=== PATIENT | male | born 1930 | race Caucasian/White ===

== ENCOUNTER 2017-09-10 16:39 | Inpatient (IN) | payer OTHER ==
--- NOTE | 2017-09-10 17:21 | PDOC ---
Attending Attestation - HPI HPI: 09/10/17 19:07 The patient is a 86 year old male with significant past medical history of HTN presets to the emergency department with dyspnea on exertion since the past month. EKG done earlier shows manifestation of Afib. - Medical Decision Making Consulted with the director of compensation machine sole leveler , Dr. Eng at 7:17PM. 09/10/17 19:18 <Concha Harmon - Last Filed: 09/10/17 19:18> - Resident Resident Name: Rafi Murrell - ED Attending Attestation I have performed the following: I have examined & evaluated the patient, The case was reviewed & discussed with the resident, I agree w/resident's findings & plan, Exceptions are as noted - Physicial Exam PE: 09/10/17 18:11 Patient is awake and alert, well-appearing, in no distress Normocephalic, atraumatic EOMI, PERRLA No JVD CTA Irregularly irregular, mildly tachycardic Soft, nondistended, nontender to palpation Minimal lower extremity edema bilaterally Awake and alert, moving all extremities symmetrically - Medical Decision Making 09/10/17 18:12 Patient is an 86-year-old male with history of hypertension who presents with worsening shortness of breath with minimal exertion for the past month. An outpatient evaluation patient was found to be in atrial fibrillation with RVR. In the ER, patient is afebrile, mildly tachycardic, hemodynamically stable in no distress. We'll obtain CBC/CMP/cardiac profile/TSH. We'll administer Cardizem by mouth for rate control. Patient's chads 2 vascular score is 3 suggestive of anticoagulation pending risk versus benefit analysis. chest x-ray shows b/l pleural effusions. Will consult cardiology. Will admit. 09/10/17 19:[address] Eng of cardiology. He agrees with plan of diuresis and anticoagulation with a liquids. <Alberto Saldana - Last Filed: 09/10/17 19:24>
[2017-09-10] MEDS ORDERED: dilTIAZem HCL 30 MG TABLET (FP) PO ONE (17:29)
--- NOTE | 2017-09-10 17:40 | PDOC ---
History of Present Illness - General History Source: Patient Exam Limitations: No Limitations <Rafi Murrell - Last Filed: 09/10/17 18:46> <Alberto Saldana - Last Filed: 09/10/17 19:46> - General Chief Complaint: Shortness of Breath Stated Complaint: IRREGULAR HEART BEAT Time Seen by Provider: 09/10/17 17:11 - History of Present Illness Initial Comments: 09/10/17 18:48 86m with pmh of htn who presents with worsening SOB on exertion for the past month. PCP Dr. Leonard saw patient this morning who was found to be in new- onset atrial fibrillation with RVR at a rate of 127. Patient is comfortable sleeping flat. In the ER, patient is afebrile, mildly tachycardic, hemodynamically stable in no distress. (Rafi Murrell) Past History - Past Medical History COPD: No HTN: Yes Psychiatric Problems: Yes (anxiety) - Surgical History Abdominal Surgery: Yes (hernia) - Suicide/Smoking/Psychosocial Hx Smoking History: Never smoked Have you smoked in the past 12 months: No Information on smoking cessation initiated: No Hx Alcohol Use: No Drug/Substance Use Hx: No Substance Use Type: None <Rafi Murrell - Last Filed: 09/10/17 18:46> <Alberto Saldana - Last Filed: 09/10/17 19:46> - Past Medical History Allergies/Adverse Reactions: Allergies Allergy/AdvReac Type Severity Reaction Status Date / Time No Known Allergies Allergy Verified 09/10/17 16:55 Home Medications: Ambulatory Orders Metoprolol Succinate 100 mg PO DAILY 09/10/17 Review of Systems - Review of Systems Able to Perform ROS?: Yes Is the patient limited Tunisian proficient: No Constitutional: No: Symptoms Reported HEENTM: No: Symptoms Reported Respiratory: Yes: SOB with Exertion Cardiac (ROS): Yes: Irregular Heart Rate ABD/GI: No: Symptoms Reported : No: Symptoms Reported Musculoskeletal: No: Symptoms Reported Integumentary: No: Symptoms Reported Neurological: No: Symptoms reported All Other Systems: Reviewed and Negative <Rafi Murrell - Last Filed: 09/10/17 18:46> *Physical Exam - Physical Exam General Appearance: Yes: Nourished, Appropriately Dressed, Thin. No: Apparent Distress HEENT: positive: EOMI, ANDRES Respiratory/Chest: positive: Lungs Clear, Normal Breath Sounds, Decreased Breath Sounds (at b/l bases). negative: Chest Tender, Respiratory Distress Cardiovascular: positive: Irregularly Irregular Gastrointestinal/Abdominal: positive: Normal Bowel Sounds, Flat, Soft. negative : Tender Integumentary: positive: Normal Color, Dry, Warm Neurologic: positive: Fully Oriented, Alert, Normal Mood/Affect <Rafi Murrell - Last Filed: 09/10/17 18:46> - Vital Signs Last Vital Signs Temp Pulse Resp BP Pulse Ox 97.8 F 150 H 20 144/77 97 09/10/17 16:50 09/10/17 16:50 09/10/17 16:50 09/10/17 16:50 09/10/17 16:50 ED Treatment Course - LABORATORY CBC & Chemistry Diagram: 09/10/17 16:39 09/10/17 16:39 <Rafi Murrell - Last Filed: 09/10/17 18:46> - LABORATORY CBC & Chemistry Diagram: 09/10/17 16:39 09/10/17 16:39 <Alberto Saldana - Last Filed: 09/10/17 19:46> - ADDITIONAL ORDERS Additional order review: Laboratory Results 09/10/17 09/10/17 09/10/17 16:39 16:39 16:39 PT with INR INR PTT (Actin FS) Sodium 143 Potassium 4.4 Chloride 111 H Carbon Dioxide 23 Anion Gap 9 BUN 26 H Creatinine 1.2 Creat Clearance w eGFR 57.41 Random Glucose 84 Calcium 8.2 L Total Bilirubin 1.7 H AST 38 H ALT 34 Alkaline Phosphatase 78 Troponin I 0.05 B-Natriuretic Peptide 68413.95 H Total Protein 6.0 L Albumin 3.3 L TSH 3.98 H 09/10/17 16:39 PT with INR 14.90 H INR 1.32 H PTT (Actin FS) 33.8 Sodium Potassium Chloride Carbon Dioxide Anion Gap BUN Creatinine Creat Clearance w eGFR Random Glucose Calcium Total Bilirubin AST ALT Alkaline Phosphatase Troponin I B-Natriuretic Peptide Total Protein Albumin TSH 09/10/17 16:39 RBC 4.87 MCV 95.1 MCHC 33.8 RDW 15.3 MPV 10.5 Neutrophils % 61.0 Lymphocytes % 25.2 Monocytes % 11.9 H Eosinophils % 1.1 Basophils % 0.8 - Medications Given in the ED: ED Medications Discontinued Medications Generic Name Dose Route Start Last Admin Trade Name Harleyq PRN Reason Stop Dose Admin Diltiazem HCl 30 mg 09/10/17 17:29 09/10/17 18:02 Cardizem - PO 09/10/17 17:30 30 mg ONCE ONE Administration Medical Decision Making <Rafi Murrell - Last Filed: 09/10/17 18:46> <Alberto Saldana - Last Filed: 09/10/17 19:46> - Medical Decision Making 09/10/17 19:00 86m with new onset afib and sob on exertion for the past month. EKG: Atrial fibrillation with rapid ventricular response, left fascicular blcok Will rate control with cardizem., SC vs valvular disease vs PE CXR pending, basic labs. Will admit to Tele obs. Recommend echo. (Rafi Murrell) *DC/Admit/Observation/Transfer <Rafi Murrell - Last Filed: 09/10/17 18:46> - Discharge Dispostion Admit: Yes <Alberto Saldana - Last Filed: 09/10/17 19:46> Diagnosis at time of Disposition: Atrial fibrillation with RVR, Pleural effusion - Discharge Dispostion Condition at time of disposition: Fair - Referrals Referrals: Diana Mena MD [Primary Care Provider] - - Patient Instructions - Post Discharge Activity
[2017-09-10] MEDS ORDERED: dilTIAZem HCL 30 MG TABLET (FP) ONE (17:42)
[2017-09-10 18:09] LABS: BASO % 0.8 % (0-2.0); EOS % 1.1 % (0-4.5); HEMATOCRIT 46.3 % (35.4-49); HEMOGLOBIN 15.7 GM/dL (11.7-16.9); LYMPH % 25.2 % (8-40); MCH 32.1 pg (25.7-33.7); MCHC 33.8 g/dl (32.0-35.9); MEAN CELL VOLUME 95.1 fl (80-96); MEAN PLT VOLUME 10.5 fl (7.5-11.1); MONO % 11.9 % (3.8-10.2); PLATELET COUNT 131 K/MM3 (134-434); RBC 4.87 M/mm3 (4.00-5.60); RDW 15.3 % (11.9-15.9); WHITE BLOOD COUNT 6.5 K/mm3 (4.0-10.0)
[2017-09-10 18:23] LABS: INR 1.32 (0.82-1.09); PROTHROMBIN TIME (PATIENT) 14.9 SEC (9.7-13.0)
[2017-09-10 18:25] LABS: ACTIVATED PTT 33.8 SECONDS (26.9-34.4)
[2017-09-10 18:43] LABS: ALBUMIN 3.3 g/dl (3.4-5.0); ALK PHOS 78 U/L (45-117); ANION GAP 9 (8-16); BILIRUBIN,TOTAL 1.7 mg/dL (0.2-1.0); BLOOD UREA NITROGEN 26 mg/dL (7-18); CALCIUM 8.2 mg/dL (8.5-10.1); CHLORIDE 111 mmol/L (98-107); CO2 23 mmol/L (21-32); CREATININE 1.2 mg/dL (0.7-1.3); GLUCOSE,RANDOM 84 mg/dL (74-106); POTASSIUM 4.4 mmol/L (3.5-5.1); SGOT/AST 38 U/L (15-37); SGPT/ALT 34 U/L (12-78); SODIUM 143 mmol/L (136-145)
[2017-09-10 18:45] LABS: N-TERMINAL BNP 10630.95 pg/ml (5-450)
[2017-09-10] MEDS ORDERED: FUROSEMIDE 40 MG/4 ML INJECTABLE VIAL IVPUSH ONE ×2 (19:12→19:17)
[2017-09-10] MEDS ORDERED: APIXABAN 5 MG TABLET PO ONE (19:17)
[2017-09-10] MEDS ORDERED: FUROSEMIDE 40 MG/4 ML INJECTABLE VIAL ONE (19:48)
[2017-09-10] MEDS ORDERED: HEPARIN NA (PORCINE) 5,000 UNITS/ML 1ML VIAL IVPUSH PRN ×2 (22:08)
[2017-09-10] MEDS ORDERED: METOPROLOL TARTRATE 50 MG TABLET (FP) ONE (22:12)
[2017-09-10] MEDS: METOPROLOL TARTRATE 50 MG TABLET (FP) PO SCH (22:17)
--- NOTE | 2017-09-10 22:29 | PN ---
Teaching Attending Note Name of Resident: Faraz Rodriguez ATTENDING PHYSICIAN STATEMENT I saw and evaluated the patient. Chart, data, imaging reviewed. I reviewed the resident's note and discussed the case with the resident. I agree with the resident's findings and plan as documented. SUBJECTIVE: 86-year-old male with history of hypertension presented with shortness of breath for last 3 weeks, associated with dry cough. Denied any fevers, sick contacts, or recent travels. He has dyspnea with minimal exertion. No pedal swelling or chest pain, negative orthopnea symptoms. Found to have afib on ekg, new onset. CHADS vasc 2 score is 3. Risk and benefits of anticoagulation explained to patient. He agreed for anticoagulation. CXR showed right sided pleural effusion. OBJECTIVE: Last Vital Signs Temp Pulse Resp BP Pulse Ox 98 F 88 21 137/84 96 09/10/17 21:21 09/10/17 21:21 09/10/17 21:21 09/10/17 21:21 09/10/17 21:21 general- nad, aaox3 heent- moist oral mucosa neck -no jvd noted cv - s1+s2+ irregularly irregular chest- cta -bibasilar left basilar crackle, decreased breath sound over right base abdomen- soft, nt, no masses noted, bs+ ext- no pedal edema Abnormal Lab Results 09/10/17 09/10/17 09/10/17 16:39 16:39 16:39 Plt Count 131 L Monocytes % 11.9 H PT with INR 14.90 H INR 1.32 H Chloride 111 H BUN 26 H Calcium 8.2 L Total Bilirubin 1.7 H AST 38 H B-Natriuretic Peptide 04686.95 H Total Protein 6.0 L Albumin 3.3 L TSH 09/10/17 16:39 Plt Count Monocytes % PT with INR INR Chloride BUN Calcium Total Bilirubin AST B-Natriuretic Peptide Total Protein Albumin TSH 3.98 H CXR -reviewed, noted to have pulmonary vascular congestion with a right sided pleural effusion EKG - reviewed, atrial fibrillation ASSESSMENT AND PLAN: #New onset atrial fibrillation, CHADSVASC score is 3, patient agrees for anticoagulation, risks and benefits of anticoagulation explained. troponin was neg. -admit to telemetry -cardiology evaluation -transthoracic echo -thyroid function studies -metoprolol 50mg po bid for rate control -aim for HR <100 -heparin drip for anticoagulation -trend troponin #R/o CHF- high suspiscion as there is dyspnea with exertion, high BNP, pulm vascular congestion - TTE -start ACEi -i/o, daily weights -2g Na diet #DVT ppx- heparin drip
--- NOTE | 2017-09-10 22:37 | HP ---
CHIEF COMPLAINT: LE PCP: Dr. Leonard HISTORY OF PRESENT ILLNESS: Patient is an 86 yo M with a PMHx of HTN, presented to the ED because of worsening dyspnea on exertion over the past 3 weeks. He says he was able to walk long distances, but now he can't walk 15 yards without stopping to catch his breath. He saw is PCP today who found him to be in A-fib with RVR, and was told to go to the ED. 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 He also noticed he has been coughing (dry) more frequently over the past few weeks. Patient denies orthopnea, edema, dizziness, chest pain, sob, palpitations , nausea, vomiting, headaches, dysuria, diarrhea, weight loss. ER course was notable for: (1) EKG: A-fib with RVR @ 114. QTc 504 (2) Lasix 40mg IV (3) Cardizem 30mg Recent Travel: denies PAST MEDICAL HISTORY: HTN PAST SURGICAL HISTORY: n/a Social History: Smoking: denies Alcohol: very rarely, 2 drink a a year Drugs: denies Family History: Allergies No Known Allergies Allergy (Verified 09/10/17 16:55) HOME MEDICATIONS: Home Medications Medication Instructions Recorded Metoprolol Succinate 100 mg PO DAILY 09/10/17 REVIEW OF SYSTEMS CONSTITUTIONAL: Absent: fever, chills, diaphoresis, generalized weakness, malaise, loss of appetite, weight change HEENT: Absent: rhinorrhea, nasal congestion, throat pain, throat swelling, difficulty swallowing, mouth swelling, ear pain, eye pain, visual changes CARDIOVASCULAR: Absent: chest pain, syncope, palpitations, irregular heart rate, lightheadedness , peripheral edema RESPIRATORY: cough, le Absent: shortness of breath, orthopnea, wheezing, stridor, hemoptysis GASTROINTESTINAL: Absent: abdominal pain, abdominal distension, nausea, vomiting, diarrhea, constipation, melena, hematochezia GENITOURINARY: Absent: dysuria, frequency, urgency, hesitancy, hematuria, flank pain, genital pain SKIN: Absent: rash, itching, pallor HEMATOLOGIC/IMMUNOLOGIC: Absent: easy bleeding, easy bruising, lymphadenopathy, frequent infections NEUROLOGIC: Absent: headache, focal weakness or paresthesias, dizziness, unsteady gait, seizure, mental status changes, bladder or bowel incontinence PHYSICAL EXAMINATION Vital Signs - 24 hr 09/10/17 09/10/17 09/10/17 16:39 16:50 21:21 Temperature 97.8 F 98 F Pulse Rate 114 H 150 H Pulse Rate [ 114 H 88 Left] Respiratory 18 20 21 Rate Blood Pressure 144/77 Blood Pressure 140/74 137/84 [Right Arm] O2 Sat by Pulse 98 97 96 Oximetry (%) GENERAL: Awake, alert, and fully oriented, in no acute distress. EYES: Pupils equal, round and reactive to light, extraocular movements intact, sclera anicteric, conjunctiva clear. No lid lag. EARS, NOSE, THROAT: oropharynx clear without exudates. Moist mucous membranes. NECK: no JVD LUNGS: crackles in the left base HEART: irregularly irregular, no murmurs appreciated ABDOMEN: Soft, nontender, not distended, normoactive bowel sounds, no guarding, no rebound, no masses. UPPER EXTREMITIES: 2+ pulses, warm, well-perfused. No peripheral edema. LOWER EXTREMITIES: 2+ pulses, warm, well-perfused. No peripheral edema. NEUROLOGICAL: Cranial nerves II-XII intact. Normal speech. PSYCHIATRIC: Cooperative. Good eye contact. Appropriate mood and affect. Laboratory Results - last 24 hr 09/10/17 09/10/17 09/10/17 16:39 16:39 16:39 WBC 6.5 RBC 4.87 Hgb 15.7 Hct 46.3 MCV 95.1 MCH 32.1 MCHC 33.8 RDW 15.3 Plt Count 131 L MPV 10.5 Neutrophils % 61.0 Lymphocytes % 25.2 Monocytes % 11.9 H Eosinophils % 1.1 Basophils % 0.8 PT with INR 14.90 H INR 1.32 H PTT (Actin FS) 33.8 Sodium 143 Potassium 4.4 Chloride 111 H Carbon Dioxide 23 Anion Gap 9 BUN 26 H Creatinine 1.2 Creat Clearance w eGFR 57.41 Random Glucose 84 Calcium 8.2 L Total Bilirubin 1.7 H AST 38 H ALT 34 Alkaline Phosphatase 78 Troponin I B-Natriuretic Peptide 25755.95 H Total Protein 6.0 L Albumin 3.3 L TSH 09/10/17 09/10/17 16:39 16:39 WBC RBC Hgb Hct MCV MCH MCHC RDW Plt Count MPV Neutrophils % Lymphocytes % Monocytes % Eosinophils % Basophils % PT with INR INR PTT (Actin FS) Sodium Potassium Chloride Carbon Dioxide Anion Gap BUN Creatinine Creat Clearance w eGFR Random Glucose Calcium Total Bilirubin AST ALT Alkaline Phosphatase Troponin I 0.05 B-Natriuretic Peptide Total Protein Albumin TSH 3.98 H ASSESSMENT/PLAN: 86 yo M with a PMHx of HTn, presents to the ED with 3 week onset of LE, and was found to be in new onset a-fib with CHF. #New Onset A-fib -Tele -ChadVasc 3 -1x Eliquis in ED -Heparin gtt started -Echo in AM -consider eliquis if no severe valvular abnormalities -Trend trops, 1st set neg -Cardiology consulted -EKG -Lopressor 50mg BID for rate control -Patient on home metoporolol but does not know dose. Med rec. #Acute CHF -CXR: congestion, b/l pleural effusions -Lasix 40mg IV 1x in ED -Continue lasix 20mg IV daily -Start Lisinopril 5mg -Daily weights -I/Os -fluid restriction -Echo in AM -Cardiology consulted #BARBARA -urine lytes, urea -avoid nephrotoxins -follow am CMP #Elevated TSH -T4 -Total T3 #FEN -Fluid restriction -WNL -Sodium restricted #PPX -Heparin Gtt Med-tele Visit type - Emergency Visit Emergency Visit: Yes ED Registration Date: 09/10/17 Care time: The patient presented to the Emergency Department on the above date and was hospitalized for further evaluation of their emergent condition. - New Patient This patient is new to me today: Yes Date on this admission: 09/11/17 - Critical Care Critical Care patient: No Hospitalist Screening - Colonoscopy Questionnaire Colonoscopy Questionnaire: Colonoscopy Questionnaire - Patient: 50 - 75 years old and never had a screening colonoscopy: Unknown History of colon or rectal polyps, or CA: Unknown History of IBD, Crohn's disease or UC: Unknown History of abdominal radiation therapy as a child: Unknown - Relative: 1 with colon or rectal CA, or polyps at age 60 or younger: Unknown Colon or rectal CA diagnosed at age 45 or younger: Unknown Multiple relatives with colon or rectal CA: Unknown - Outcome: Screening Result: Negative Screen
[2017-09-10] MEDS ORDERED: HEPARIN INFUSION - 25,000 UNITS/500 ML INFUS.BAG IVPB ONE (22:40)
[2017-09-10] MEDS: HEPARIN INFUSION - 25,000 UNITS/500 ML INFUS.BAG IVPB SCH ×2 (22:41→23:13)
[2017-09-10] MEDS ORDERED: LISINOPRIL 5 MG TABLET (FP) PO ONE (23:37)
[2017-09-11 00:50] VITALS: BMI 23.8
[2017-09-11 07:50] LABS: HEMOGLOBIN 15.3 GM/dL (11.7-16.9); MCH 31.9 pg (25.7-33.7); MCHC 33.2 g/dl (32.0-35.9); MEAN PLT VOLUME 10.6 fl (7.5-11.1); PLATELET COUNT 122 K/MM3 (134-434); RBC 4.79 M/mm3 (4.00-5.60); RDW 15.7 % (11.9-15.9); WHITE BLOOD COUNT 5.5 K/mm3 (4.0-10.0)
[2017-09-11 07:52] LABS: INR 1.74 (0.82-1.09); PROTHROMBIN TIME (PATIENT) 19.7 SEC (9.7-13.0)
[2017-09-11 08:16] LABS: ALBUMIN 3.1 g/dl (3.4-5.0); ANION GAP 12 (8-16); BLOOD UREA NITROGEN 26 mg/dL (7-18); CALCIUM 8.5 mg/dL (8.5-10.1); CHLORIDE 107 mmol/L (98-107); CO2 26 mmol/L (21-32); GLUCOSE,RANDOM 87 mg/dL (74-106); POTASSIUM 4.5 mmol/L (3.5-5.1); SODIUM 145 mmol/L (136-145)
[2017-09-11 08:22] LABS: ALK PHOS 72 U/L (45-117); BILIRUBIN,TOTAL 1.7 mg/dL (0.2-1.0); CREATININE 1.2 mg/dL (0.7-1.3); SGOT/AST 36 U/L (15-37); SGPT/ALT 33 U/L (12-78); TOT PROT 5.8 g/dl (6.4-8.2)
--- NOTE | 2017-09-11 09:05 | PN ---
Physical Exam: SUBJECTIVE: Patient seen and examined - No overnight events; pt denies all symptoms, no complaints; SOB resolved; denies CABRERA, vision changes, f/c/n/v/d, cp, ab pain, back pain, LE edema, FNDs, orthopnea, LE; tolerating po feeds well OBJECTIVE: Vital Signs Intake & Output 09/08/17 09/09/17 09/10/17 09/11/17 23:59 23:59 23:59 23:59 Intake Total 120 Output Total 500 Balance -380 Weight 77.111 kg 77.7 kg Period Temp Pulse Resp BP Sys/Blum Pulse Ox Last 24 Hr 97 F-98.1 F 77-150 18-22 126-144/61-86 96-98 GENERAL: Elderly man, NAD, A&Ox3 HEAD: Normal with no signs of trauma. EYES: PERRL, extraocular movements intact, sclera anicteric, conjunctiva clear. No ptosis. ENT: Ears normal, nares patent, oropharynx clear without exudates, moist mucous membranes. NECK: Trachea midline, full range of motion, supple. LUNGS: Trace cracles at bases, no wheezes, no accessory muscle use. HEART: Irr Irr, S1, S2 without murmur, rub or gallop. ABDOMEN: Soft, nontender, nondistended, normoactive bowel sounds, no guarding, no rebound, no hepatosplenomegaly, no masses. EXTREMITIES: warm, well-perfused, no edema. 1+ DP/PT pulses BL. NEUROLOGICAL: Cranial nerves II through XII grossly intact. Normal speech, gait not observed. PSYCH: Normal mood, normal affect. SKIN: Warm, dry, normal turgor, no rashes or lesions noted Laboratory Results - last 24 hr CBC, BMP 09/11/17 06:45 09/11/17 06:45 09/10/17 09/10/17 09/10/17 16:39 16:39 16:39 WBC 6.5 RBC 4.87 Hgb 15.7 Hct 46.3 MCV 95.1 MCH 32.1 MCHC 33.8 RDW 15.3 Plt Count 131 L MPV 10.5 Neutrophils % 61.0 Lymphocytes % 25.2 Monocytes % 11.9 H Eosinophils % 1.1 Basophils % 0.8 PT with INR 14.90 H INR 1.32 H PTT (Actin FS) 33.8 Sodium 143 Potassium 4.4 Chloride 111 H Carbon Dioxide 23 Anion Gap 9 BUN 26 H Creatinine 1.2 Creat Clearance w eGFR 57.41 Random Glucose 84 Calcium 8.2 L Magnesium Total Bilirubin 1.7 H AST 38 H ALT 34 Alkaline Phosphatase 78 Troponin I B-Natriuretic Peptide 84794.95 H Total Protein 6.0 L Albumin 3.3 L TSH Free T4 Ur Random Sodium Ur Random Potassium Ur Random Chloride Ur Random Urea Nitrogn 09/10/17 09/10/17 09/10/17 16:39 16:39 22:50 WBC RBC Hgb Hct MCV MCH MCHC RDW Plt Count MPV Neutrophils % Lymphocytes % Monocytes % Eosinophils % Basophils % PT with INR INR PTT (Actin FS) Sodium Potassium Chloride Carbon Dioxide Anion Gap BUN Creatinine Creat Clearance w eGFR Random Glucose Calcium Magnesium Total Bilirubin AST ALT Alkaline Phosphatase Troponin I 0.05 B-Natriuretic Peptide Total Protein Albumin TSH 3.98 H Free T4 Ur Random Sodium Ur Random Potassium Ur Random Chloride Ur Random Urea Nitrogn 194 09/10/17 09/11/17 09/11/17 22:50 04:00 04:00 WBC RBC Hgb Hct MCV MCH MCHC RDW Plt Count MPV Neutrophils % Lymphocytes % Monocytes % Eosinophils % Basophils % PT with INR INR PTT (Actin FS) 98.3 H D Sodium Potassium Chloride Carbon Dioxide Anion Gap BUN Creatinine Creat Clearance w eGFR Random Glucose Calcium Magnesium Total Bilirubin AST ALT Alkaline Phosphatase Troponin I 0.05 B-Natriuretic Peptide Total Protein Albumin TSH Free T4 Ur Random Sodium 116 Ur Random Potassium 22.8 Ur Random Chloride 138 Ur Random Urea Nitrogn 09/11/17 09/11/17 09/11/17 06:45 06:45 06:45 WBC 5.5 RBC 4.79 Hgb 15.3 Hct 46.0 MCV 96.0 MCH 31.9 MCHC 33.2 RDW 15.7 Plt Count 122 L MPV 10.6 Neutrophils % Lymphocytes % Monocytes % Eosinophils % Basophils % PT with INR 19.70 H INR 1.74 H D PTT (Actin FS) Sodium 145 Potassium 4.5 Chloride 107 Carbon Dioxide 26 Anion Gap 12 BUN 26 H Creatinine 1.2 Creat Clearance w eGFR 57.41 Random Glucose 87 Calcium 8.5 Magnesium 2.0 Total Bilirubin 1.7 H AST 36 ALT 33 Alkaline Phosphatase 72 Troponin I B-Natriuretic Peptide Total Protein 5.8 L Albumin 3.1 L TSH Free T4 Ur Random Sodium Ur Random Potassium Ur Random Chloride Ur Random Urea Nitrogn 09/11/17 06:45 WBC RBC Hgb Hct MCV MCH MCHC RDW Plt Count MPV Neutrophils % Lymphocytes % Monocytes % Eosinophils % Basophils % PT with INR INR PTT (Actin FS) Sodium Potassium Chloride Carbon Dioxide Anion Gap BUN Creatinine Creat Clearance w eGFR Random Glucose Calcium Magnesium Total Bilirubin AST ALT Alkaline Phosphatase Troponin I B-Natriuretic Peptide Total Protein Albumin TSH Free T4 1.39 H Ur Random Sodium Ur Random Potassium Ur Random Chloride Ur Random Urea Nitrogn Active Medications Generic Name Dose Route Start Last Admin Trade Name Freq PRN Reason Stop Dose Admin Furosemide 20 mg 09/11/17 10:00 Lasix Injection - IVPUSH DAILY ANMOL Heparin Sodium (Porcine) 1,000 unit 09/10/17 22:08 Heparin - IVPUSH PRN PRN Heparin Heparin Sodium (Porcine) 5,000 unit 09/10/17 22:08 Heparin - IVPUSH PRN PRN Heparin Heparin Sodium/Dextrose 25,000 units in 500 mls @ 20 mls/hr 09/10/17 22:45 05:38 Heparin Infusion - IVPB 900 unit/hr TITR ANMOL 18 mls/hr Protocol Titration 1,000 UNIT/HR Lisinopril 5 mg 09/11/17 10:00 Prinivil PO DAILY ANMOL Metoprolol Tartrate 50 mg 09/10/17 22:00 09/10/17 22:17 Lopressor - PO 50 mg BID ANMOL Administration No micro CXR 5/2 - BL basilar opacities and congestive changes. cardiomegaly ECHO 5/3 - Severe global hypokinesis of left ventricle, RV mildly dilated/ reduced, LA severely dilated, RA moderately dilated, mild MR, moderate TR, mild AR, moderate DE EKG 5/3 - Rate of 88, afib with pvcs, qtc 513, LAFB, No ST-TW changes ASSESSMENT/PLAN: 86 yo M with a PMHx of HTn, presents to the ED with 3 week onset of LE, and was found to be in new onset a-fib with CHF. #New Onset A-fib - rate in 150s on admission; will determine appropriate AC, rate control per cards recs -cardiac monitoring -ChadVasc 3 - c/w eliquis BID -d/c heparin gtt -Echo results noted above -trops neg x2 -Cardiology consulted, recs appreciated -EKG -Lopressor 50mg BID for rate control - serial coags #Acute CHF - BNP 10.6K, CXR with BL pleural effusions/congestion; no further dyspnea today -C/w lasix 20mg IV daily - Lisinopril 5mg -Daily weights -strict I/Os -fluid restriction; PO hydration -echo results noted as above -Cardiology following - O2 prn #CAD - Lexiscan during admission. Consider tomorrow - would benefit from ASA 81mg daily #FEN -PO hydration -daily lytes -Sodium restricted diet #PPX -d/c hep gtt; started on Eliquis BID Plan discussed with attending, Dr. Lupis Villagomez, PGY1 Visit type - Emergency Visit Emergency Visit: Yes ED Registration Date: 09/10/17 Care time: The patient presented to the Emergency Department on the above date and was hospitalized for further evaluation of their emergent condition. - New Patient This patient is new to me today: Yes Date on this admission: 09/11/17 - Critical Care Critical Care patient: No - Discharge Referral Referred to [facility] Med P.C.: No
[2017-09-11] MEDS ORDERED: FUROSEMIDE 40 MG/4 ML INJECTABLE VIAL IVPUSH SCH (10:00)
[2017-09-11] MEDS: FUROSEMIDE 40 MG/4 ML INJECTABLE VIAL IVPUSH SCH (10:18)
[2017-09-11] MEDS: METOPROLOL TARTRATE 50 MG TABLET (FP) PO SCH ×2 (10:21→22:33)
[2017-09-11] MEDS: LISINOPRIL 5 MG TABLET (FP) PO SCH (10:21)
--- NOTE | 2017-09-11 11:27 | EKG ---
Test Reason : Blood Pressure : / mmHG Vent. Rate : 088 BPM Atrial Rate : 119 BPM P-R Int : 000 ms QRS Dur : 124 ms QT Int : 424 ms P-R-T Axes : 000 -58 106 degrees QTc Int : 513 ms ATRIAL FIBRILLATION WITH PREMATURE VENTRICULAR OR ABERRANTLY CONDUCTED COMPLEXES LEFT ANTERIOR FASCICULAR BLOCK ABNORMAL QRS-T ANGLE, CONSIDER PRIMARY T WAVE ABNORMALITY ABNORMAL ECG WHEN COMPARED WITH ECG OF 10-SEP-2017 22:15, MINIMAL CRITERIA FOR ANTERIOR INFARCT ARE NO LONGER PRESENT Confirmed by RENAE SANABRIA MD ([id number]) on 09/11/2017 11:26:54 AM Referred By: Confirmed By:RENAE SANABRIA MD
--- NOTE | 2017-09-11 11:28 | EKG ---
Test Reason : Blood Pressure : / mmHG Vent. Rate : 076 BPM Atrial Rate : 056 BPM P-R Int : 000 ms QRS Dur : 130 ms QT Int : 422 ms P-R-T Axes : 000 -59 080 degrees QTc Int : 474 ms ATRIAL FIBRILLATION LEFT AXIS DEVIATION NON-SPECIFIC INTRA-VENTRICULAR CONDUCTION BLOCK CANNOT RULE OUT ANTERIOR INFARCT (CITED ON OR BEFORE 10-SEP-2017) ABNORMAL ECG WHEN COMPARED WITH ECG OF 10-SEP-2017 16:49, VENT. RATE HAS DECREASED BY 38 BPM Confirmed by RENAE SANABRIA MD ([id number]) on 09/11/2017 11:27:47 AM Referred By: Confirmed By:RENAE SANABRIA MD
--- NOTE | 2017-09-11 11:29 | EKG ---
Test Reason : Blood Pressure : / mmHG Vent. Rate : 114 BPM Atrial Rate : 053 BPM P-R Int : 000 ms QRS Dur : 118 ms QT Int : 366 ms P-R-T Axes : 000 -61 078 degrees QTc Int : 504 ms ATRIAL FIBRILLATION WITH RAPID VENTRICULAR RESPONSE LEFT ANTERIOR FASCICULAR BLOCK ANTERIOR INFARCT , AGE UNDETERMINED ABNORMAL ECG WHEN COMPARED WITH ECG OF 24-OCT-2004 17:43, ATRIAL FIBRILLATION HAS REPLACED SINUS RHYTHM VENT. RATE HAS INCREASED BY 49 BPM QRS DURATION HAS INCREASED ANTERIOR INFARCT IS NOW PRESENT Confirmed by RENAE SANABRIA MD ([id number]) on 09/11/2017 11:29:09 AM Referred By: Confirmed By:RENAE SANABRIA MD
--- NOTE | 2017-09-11 13:51 | CON.CARD ---
Consult Consult Specialty:: Cardiology - History of Present Illness History of Present Illness: 86 yo M with HTN noted 3 weeks of dyspnea with exertion. No chest pain, edema, palpitations, orthopnea. Went to PMD yesterday and noted to be in new onset Afib with rapid ventricular response. CXR showed pulmonary congestion. An echocardiogram showed severe diffuse LV systolic dysfunction with EF 25-30% and severe TR. Currently feeling well. Denies symptoms. - History Source History Provided By: Patient - Past Medical History Cardio/Vascular: Yes: HTN - Alcohol/Substance Use Hx Alcohol Use: No - Smoking History Smoking history: Never smoked Have you smoked in the past 12 months: No Home Medications - Allergies Allergies/Adverse Reactions: Allergies Allergy/AdvReac Type Severity Reaction Status Date / Time No Known Allergies Allergy Verified 09/10/17 16:55 - Home Medications Home Medications: Ambulatory Orders Metoprolol Succinate 100 mg PO DAILY 09/10/17 Review of Systems - Review of Systems Constitutional: denies: Chills, Diaphoresis, Fever, Lethargy Eyes: reports: No Symptoms HENT: reports: No Symptoms Neck: reports: No Symptoms Cardiovascular: reports: Shortness of Breath. denies: Chest Pain, Edema, Palpitations Respiratory: reports: Exercise Intolerance, SOB, SOB on Exertion. denies: Cough , Hemoptysis, Orthopnea, PND Musculoskeletal: reports: No Symptoms Integumentary: reports: No Symptoms Neurological: reports: No Symptoms Vital Signs: Vital Signs Temperature 97 F L 09/11/17 08:23 Pulse Rate 88 09/11/17 08:23 Respiratory Rate 22 09/11/17 08:23 Blood Pressure 129/86 09/11/17 08:23 O2 Sat by Pulse Oximetry (%) 96 09/11/17 08:21 Constitutional: Yes: Well Nourished, No Distress Eyes: Yes: WNL, Conjunctiva Clear, EOM Intact HENT: Yes: Atraumatic, Normocephalic Neck: Yes: Supple, Trachea Midline Respiratory: Yes: Regular, CTA Bilaterally Gastrointestinal: Yes: Normal Bowel Sounds, Soft Cardiovascular: Yes: Pulse Irregular JVD: No Carotid Bruit: No PMI: Non-Displaced Heart Sounds: Yes: S1, S2 Murmur: Yes: Systolic Murmur, Grade 2 (RLSB) Edema: No - Other Data Labs, Other Data: CBC, BMP 09/11/17 06:45 09/11/17 06:45 INR, PTT INR 1.74 (0.82-1.09) H D 09/11/17 06:45 Troponin, BNP 09/10/17 09/10/17 09/11/17 16:39 16:39 04:00 Troponin I 0.05 0.05 B-Natriuretic Peptide 54196.95 H Troponin, BNP 09/10/17 09/10/17 09/11/17 16:39 16:39 04:00 Troponin I 0.05 0.05 B-Natriuretic Peptide 18229.95 H Laboratory Tests 09/10/17 09/10/17 09/11/17 16:39 16:39 04:00 Troponin I 0.05 0.05 Albumin TSH 3.98 H Free T4 09/11/17 09/11/17 06:45 06:45 Troponin I Albumin 3.1 L TSH Free T4 1.39 H Echo: Report Reviewed Ejection Fraction %: LVEF < 40 % Imaging - Results Chest X-ray: Report Reviewed EKG: Image Reviewed (Afib LAD poor R wave progression and ventriular couplets.) Assessment/Plan 86 yo M with recent LE and rapid afib. Newly diagnosed cardiomyopathy with severe global LV systolic dysfunction 1. Cardiomyopathy is likely tachycardia induced, however CAD is of concern given his age. We discussed cardiac catheterization but the patient did not want an invasive procedure at this time. * Lexiscan nuclear stress test * Continue Metoprolol/Lisinopril and low dose lasix * Would consider long-term anticoagulation with elevated CHADS-Vasc score. Can place on Eliquis 5mg BID OR Xarelto 20mg qd and stop IV heparin.
--- NOTE | 2017-09-11 13:59 | MSN ---
Progress Note (short form) - Note Progress Note: SUBJECTIVE: Patient with history of hypertension, presented to the ED from his PCP office where a EKG revealed atrial fibrillation with rapid ventricular rate. For the past 3 weeks he has had dyspnea on exertion associated with a non- productive cough. He denies chest pain, lower extremity edema, lightheadedness or syncope. In the ED, he was found to be in atrial fibrillation at a ventricular rate of 150 bpm. He was hemodynamically stable. He received cardizem 30 mg and lasix IV 40 mg with subsequent decrease in heart rate (90bpm ) and subjective improvement in shortness of breath. CXR demonstrated b/l basilar pleural infiltrates/effusions. He was started on a heparin ggt for anti -coagulation. Patient seen and examined at bedside this morning. monitoring and evaluation advisor noted irregular rhythm, tachycardia to 115 bpm with exertion and paired PVCs. No acute overnight events. Vital signs stable. Patient has no complaints this morning. Currently on 2 L of O2 via nasal canula. He denies shortness of breath at rest or with exertion this morning. He denies cough, chest pain, palpitations, lightheadedness, abdominal pain, or lower extremity swelling. He is eating and ambulating well. OBJECTIVE: Vital Signs Period Temp Pulse Resp BP Sys/Blum Pulse Ox Last 24 Hr 97 F-98.1 F 77-150 18-22 126-144/61-86 96-98 GENERAL: Older man appearing younger than stated age sitting up in bed eating breakfast in no distress. Awake, alert, and orientated. HEAD: Normal without evidence of trauma EYES: Conjunctiva clear, sclera anicteric, extra-ocular muscles intact MOUTH: Poor dentition, no lesions or plaques, moist mucous membranes, uvula midline NECK: No jugular venous distention, no lymphadenopathy, no thyromegaly, trachea midline CARDIOVASCULAR: Irregular at rate of 90 bpm, +S1/S2, no murmurs, rubs, or gallops, non-displaced PMI LUNGS: Decreased breath sounds at the bases b/l, no wheezes or crackles ABDOMEN: Normoactive bowel sounds, non-tender, non-distended, soft, no hepatosplenomegaly, no pulsatile masses EXTREMITIES: No LE edema, 2+ DP/radial pulses b/l MSK: Osteoarthric changes of hands b/l NEURO: CN II-XII grossly intact, normal speech PSYCH: Cooperative, pleasant mood and affect CBC, BMP 09/11/17 06:45 09/11/17 06:45 Troponin, BNP 09/10/17 09/10/17 09/11/17 16:39 16:39 04:00 Troponin I 0.05 0.05 B-Natriuretic Peptide 81970.95 H INR, PTT INR 1.74 (0.82-1.09) H D 09/11/17 06:45 Current Medications Generic Name Dose Route Start Last Admin Trade Name Freq PRN Reason Stop Dose Admin Furosemide 20 mg 09/11/17 10:00 09/11/17 10:18 Lasix Injection - IVPUSH 20 mg DAILY ANMOL Administration Heparin Sodium (Porcine) 1,000 unit 09/10/17 22:08 Heparin - IVPUSH PRN PRN Heparin Heparin Sodium (Porcine) 5,000 unit 09/10/17 22:08 Heparin - IVPUSH PRN PRN Heparin Heparin Sodium/Dextrose 25,000 units in 500 mls @ 20 mls/hr 09/10/17 22:45 05:38 Heparin Infusion - IVPB 900 unit/hr TITR ANMOL 18 mls/hr Protocol Titration 1,000 UNIT/HR Lisinopril 5 mg 09/11/17 10:00 09/11/17 10:21 Prinivil PO 5 mg DAILY ANMOL Administration Metoprolol Tartrate 50 mg 09/10/17 22:00 09/11/17 10:21 Lopressor - PO 50 mg BID ANMOL Administration IMAGIN-2 EKG- Atrial fibrillation at ventricular rate of 114 bpm, left anterior fasicular block 5-2 CXR- Bibasilar infiltrates/atelectasis; pulmonary congestion; cardiomegaly Echocardiogram: Severely reduced ejection fraction=25-30% with global hypokinesis of left ventricle. Left atrium severely dilated. Right atrium moderately dilated. Severe tricupsid regurgitation. ASSESSMENT/PLAN: 85 yr old man presented to ED after 3 weeks of dyspnea with exertion and was found to have new-onset atrial fibrillation and systolic CHF. #New on-set atrial fibrillation -Resting ventricular rate is currently controlled with Lopressor 50 mg PO BID ; consider need for increasing lopressor dose as patient is tachycardic with exertion; goal heart rate < 100 bpm -[id number] score is 3; patient would benefit from anticoagulation- discontinue heparin ggt and start Eliquis 5 mg PO BID -Monitor magnesium level #Acute CHF exacerbation-likely 2/2 to sustained tachycardia -Reduced left ventricular ejection fraction (25-30%) and b/l basilar infiltrates on CXR -Troponins (-) x 2 -BNP 10,630 -Start lisinopril 5 mg QD -Continue lasix 20 mg IV QD -Consider need for adding aldactone for mortality benefit -Dr. Eng recommends Lexiscan as concern for CAD contributing to cardiomyopathy #Chronic kidney disease- stage 3 -Creatinine 1.2 -Monitor renal function as starting lisinopril 5 mg QD and lasix 20 mg IV QD -Check serum phosphorous, potassium #Elevated total bilirubin-maybe 2/2 to hepatic congestion and reduced cardiac output -LFTs within normal limits, monitor for improvement as medically optimize cardiac function #DVT ppx -Eliquis 5 mg BID #F/E/N -Low sodium diet #Dispo-Continue telemetry monitoring
--- NOTE | 2017-09-11 17:33 | PN ---
Teaching Attending Note Name of Resident: Tanmay Villagomez ATTENDING PHYSICIAN STATEMENT I saw and evaluated the patient. I reviewed the resident's note and discussed the case with the resident. I agree with the resident's findings and plan as documented. SUBJECTIVE: Patient denies chest pain, palpitations, SOB. OBJECTIVE: Vital Signs Period Temp Pulse Resp BP Sys/Blum Pulse Ox Last 24 Hr 97 F-98.1 F 77-150 20-22 126-144/61-86 96-97 HEART: Irregular LUNGS: Clear ABDOMEN: Soft, non-tender, non-distended, normal BS EXTREMITIES: No edema Laboratory Results - last 24 hr 09/10/17 09/10/17 09/10/17 16:39 16:39 16:39 WBC 6.5 RBC 4.87 Hgb 15.7 Hct 46.3 MCV 95.1 MCH 32.1 MCHC 33.8 RDW 15.3 Plt Count 131 L MPV 10.5 Neutrophils % 61.0 Lymphocytes % 25.2 Monocytes % 11.9 H Eosinophils % 1.1 Basophils % 0.8 PT with INR 14.90 H INR 1.32 H PTT (Actin FS) 33.8 Sodium 143 Potassium 4.4 Chloride 111 H Carbon Dioxide 23 Anion Gap 9 BUN 26 H Creatinine 1.2 Creat Clearance w eGFR 57.41 Random Glucose 84 Calcium 8.2 L Magnesium Total Bilirubin 1.7 H AST 38 H ALT 34 Alkaline Phosphatase 78 Troponin I B-Natriuretic Peptide 49427.95 H Total Protein 6.0 L Albumin 3.3 L TSH Free T4 Ur Random Sodium Ur Random Potassium Ur Random Chloride Ur Random Urea Nitrogn 09/10/17 09/10/17 09/10/17 16:39 16:39 22:50 WBC RBC Hgb Hct MCV MCH MCHC RDW Plt Count MPV Neutrophils % Lymphocytes % Monocytes % Eosinophils % Basophils % PT with INR INR PTT (Actin FS) Sodium Potassium Chloride Carbon Dioxide Anion Gap BUN Creatinine Creat Clearance w eGFR Random Glucose Calcium Magnesium Total Bilirubin AST ALT Alkaline Phosphatase Troponin I 0.05 B-Natriuretic Peptide Total Protein Albumin TSH 3.98 H Free T4 Ur Random Sodium Ur Random Potassium Ur Random Chloride Ur Random Urea Nitrogn 194 09/10/17 09/11/17 09/11/17 22:50 04:00 04:00 WBC RBC Hgb Hct MCV MCH MCHC RDW Plt Count MPV Neutrophils % Lymphocytes % Monocytes % Eosinophils % Basophils % PT with INR INR PTT (Actin FS) 98.3 H D Sodium Potassium Chloride Carbon Dioxide Anion Gap BUN Creatinine Creat Clearance w eGFR Random Glucose Calcium Magnesium Total Bilirubin AST ALT Alkaline Phosphatase Troponin I 0.05 B-Natriuretic Peptide Total Protein Albumin TSH Free T4 Ur Random Sodium 116 Ur Random Potassium 22.8 Ur Random Chloride 138 Ur Random Urea Nitrogn 09/11/17 09/11/17 09/11/17 06:45 06:45 06:45 WBC 5.5 RBC 4.79 Hgb 15.3 Hct 46.0 MCV 96.0 MCH 31.9 MCHC 33.2 RDW 15.7 Plt Count 122 L MPV 10.6 Neutrophils % Lymphocytes % Monocytes % Eosinophils % Basophils % PT with INR 19.70 H INR 1.74 H D PTT (Actin FS) Sodium 145 Potassium 4.5 Chloride 107 Carbon Dioxide 26 Anion Gap 12 BUN 26 H Creatinine 1.2 Creat Clearance w eGFR 57.41 Random Glucose 87 Calcium 8.5 Magnesium 2.0 Total Bilirubin 1.7 H AST 36 ALT 33 Alkaline Phosphatase 72 Troponin I B-Natriuretic Peptide Total Protein 5.8 L Albumin 3.1 L TSH Free T4 Ur Random Sodium Ur Random Potassium Ur Random Chloride Ur Random Urea Nitrogn 09/11/17 09/11/17 06:45 12:40 WBC RBC Hgb Hct MCV MCH MCHC RDW Plt Count MPV Neutrophils % Lymphocytes % Monocytes % Eosinophils % Basophils % PT with INR INR PTT (Actin FS) 96.6 H Sodium Potassium Chloride Carbon Dioxide Anion Gap BUN Creatinine Creat Clearance w eGFR Random Glucose Calcium Magnesium Total Bilirubin AST ALT Alkaline Phosphatase Troponin I B-Natriuretic Peptide Total Protein Albumin TSH Free T4 1.39 H Ur Random Sodium Ur Random Potassium Ur Random Chloride Ur Random Urea Nitrogn Current Medications Generic Name Dose Route Start Last Admin Trade Name Freq PRN Reason Stop Dose Admin Apixaban 5 mg 09/11/17 22:00 Eliquis - PO BID ANMOL Furosemide 20 mg 09/11/17 10:00 09/11/17 10:18 Lasix Injection - IVPUSH 20 mg DAILY ANMOL Administration Lisinopril 5 mg 09/11/17 10:00 09/11/17 10:21 Prinivil PO 5 mg DAILY ANMOL Administration Metoprolol Tartrate 50 mg 09/10/17 22:00 09/11/17 10:21 Lopressor - PO 50 mg BID ANMOL Administration ASSESSMENT AND PLAN: This is an 86 year old man with a history of HTN who presented to the ED with SOB. 1. Atrial fibrillation, new onset, with RVR - Rate is better - Echo shows severely reduced LVEF, severe global hypokinesis of LV, mildly dilated RV, mildly reduced RV systolic function, severely dilated LA, moderately dilated RA, mild MR, moderate to severe TR, mild AR, moderate LA - Continue Lopressor - Eliquis started 2. Cardiomyopathy, possibly ischemic, possibly tachycardia induced, with acute on chronic systolic heart failure - Continue Lasix IV - Fluid restriction - I&O - Daily weight - Lisinopril started - Plan for stress test 3. Probable stage 3 CKD 4. HTN - Continue Lopressor - Lisinopril started
[2017-09-11] MEDS: APIXABAN 5 MG TABLET PO SCH (22:33)
--- NOTE | 2017-09-12 06:28 | PN ---
Physical Exam: SUBJECTIVE: Patient seen and examined - no major overnight events; VSS, afebrile; going for lexiscan today; Pt with no complaints; Denies f/c/n/v/d, CABRERA, sob, cp, cough, ab pain, back pain, le edema and FNDs OBJECTIVE: Vital Signs Intake & Output 09/09/17 09/10/17 09/11/17 09/12/17 23:59 23:59 23:59 23:59 Intake Total 464 Output Total 1600 Balance -1136 Weight 77.111 kg 77.7 kg Period Temp Pulse Resp BP Sys/Blum Pulse Ox Last 24 Hr 97 F-97.5 F 77-113 20-22 120-140/69-89 96-97 GENERAL: Elderly man, NAD, A&Ox3 HEAD: Normal with no signs of trauma. EYES: PERRL, extraocular movements intact, sclera anicteric, conjunctiva clear. No ptosis. ENT: Ears normal, nares patent, oropharynx clear without exudates, moist mucous membranes. NECK: Trachea midline, full range of motion, supple. LUNGS: CTABL, no wheezes, no accessory muscle use. HEART: Irr Irr, S1, S2 without murmur, rub or gallop. ABDOMEN: Soft, nontender, nondistended, normoactive bowel sounds, no guarding, no rebound, no hepatosplenomegaly, no masses. EXTREMITIES: warm, well-perfused, no edema. 1+ DP/PT pulses BL. NEUROLOGICAL: Cranial nerves II through XII grossly intact. Normal speech, gait not observed. PSYCH: Normal mood, normal affect. SKIN: Warm, dry, normal turgor, no rashes or lesions noted Laboratory Results - last 24 hr CBC, BMP CBC, BMP 09/12/17 06:30 09/12/17 06:30 09/11/17 06:45 09/11/17 06:45 09/11/17 09/11/17 09/11/17 06:45 06:45 06:45 WBC 5.5 RBC 4.79 Hgb 15.3 Hct 46.0 MCV 96.0 MCH 31.9 MCHC 33.2 RDW 15.7 Plt Count 122 L MPV 10.6 PT with INR 19.70 H INR 1.74 H D PTT (Actin FS) Sodium 145 Potassium 4.5 Chloride 107 Carbon Dioxide 26 Anion Gap 12 BUN 26 H Creatinine 1.2 Creat Clearance w eGFR 57.41 Random Glucose 87 Calcium 8.5 Magnesium 2.0 Total Bilirubin 1.7 H AST 36 ALT 33 Alkaline Phosphatase 72 Troponin I Total Protein 5.8 L Albumin 3.1 L Free T4 Total T3 09/11/17 09/11/17 09/11/17 06:45 06:45 12:40 WBC RBC Hgb Hct MCV MCH MCHC RDW Plt Count MPV PT with INR INR PTT (Actin FS) 96.6 H Sodium Potassium Chloride Carbon Dioxide Anion Gap BUN Creatinine Creat Clearance w eGFR Random Glucose Calcium Magnesium Total Bilirubin AST ALT Alkaline Phosphatase Troponin I Total Protein Albumin Free T4 1.39 H Total T3 63.00 L 09/11/17 09/11/17 16:15 19:30 WBC RBC Hgb Hct MCV MCH MCHC RDW Plt Count MPV PT with INR INR PTT (Actin FS) 76.4 H Sodium Potassium Chloride Carbon Dioxide Anion Gap BUN Creatinine Creat Clearance w eGFR Random Glucose Calcium Magnesium Total Bilirubin AST ALT Alkaline Phosphatase Troponin I 0.05 Total Protein Albumin Free T4 Total T3 Active Medications Generic Name Dose Route Start Last Admin Trade Name Freq PRN Reason Stop Dose Admin Apixaban 5 mg 09/11/17 22:00 09/11/17 22:33 Eliquis - PO 5 mg BID ANMOL Administration Furosemide 20 mg 09/11/17 10:00 09/11/17 10:18 Lasix Injection - IVPUSH 20 mg DAILY ANMOL Administration Lisinopril 5 mg 09/11/17 10:00 09/11/17 10:21 Prinivil PO 5 mg DAILY ANMOL Administration Metoprolol Tartrate 50 mg 09/10/17 22:00 09/11/17 22:33 Lopressor - PO 50 mg BID ANMOL Administration No micro CXR 09/10 - BL basilar opacities and congestive changes. cardiomegaly ECHO 09/11 - Severe global hypokinesis of left ventricle, RV mildly dilated/ reduced, LA severely dilated, RA moderately dilated, mild MR, moderate TR, mild AR, moderate [place] EKG 09/11 - Rate of 88, afib with pvcs, qtc 513, LAFB, No ST-TW changes ASSESSMENT/PLAN: 86 yo M with a PMHx of HTn, presents to the ED with 3 week onset of LE, and was found to be in new onset a-fib with CHF. #New Onset A-fib - rate in 150s on admission; better controlled currently, increases to 120s on exertion -cardiac monitoring -ChadVasc 3 -c/w eliquis BID -Echo results noted above -trops neg x2 -Cardiology consulted, recs appreciated -Lopressor 50mg BID for rate control - serial coags #Acute CHF - BNP 10.6K, CXR with BL pleural effusions/congestion; no respiratory symptoms currently -lasix 20mg IV daily - Lisinopril 5mg -Daily weights -strict I/Os -fluid restriction; PO hydration -echo results noted as above -Cardiology following - O2 prn #CAD - Lexiscan today. F/u results and cardiac recs. Will likely require C. - would benefit from ASA 81mg daily #FEN -PO hydration -daily lytes -Sodium restricted diet #PPX Eliquis BID Plan discussed with attending, Dr. Chanda Villagomez, PGY1 Visit type - Emergency Visit Emergency Visit: Yes ED Registration Date: 09/10/17 Care time: The patient presented to the Emergency Department on the above date and was hospitalized for further evaluation of their emergent condition. - New Patient This patient is new to me today: No - Critical Care Critical Care patient: No - Discharge Referral Referred to [facility] No
[2017-09-12 07:02] LABS: INR 1.57 (0.82-1.09); PROTHROMBIN TIME (PATIENT) 17.7 SEC (9.7-13.0)
[2017-09-12 07:28] LABS: ALBUMIN 2.6 g/dl (3.4-5.0); ANION GAP 10 (8-16); BASO % 0.6 % (0-2.0); BLOOD UREA NITROGEN 21 mg/dL (7-18); CHLORIDE 106 mmol/L (98-107); CO2 27 mmol/L (21-32); CREATININE 1.1 mg/dL (0.7-1.3); EOS % 1.9 % (0-4.5); GLUCOSE,RANDOM 76 mg/dL (74-106); HEMATOCRIT 42.4 % (35.4-49); HEMOGLOBIN 14.4 GM/dL (11.7-16.9); LYMPH % 28.2 % (8-40); MAGNESIUM 1.9 mg/dL (1.8-2.4); MCH 32.1 pg (25.7-33.7); MCHC 33.8 g/dl (32.0-35.9); MEAN PLT VOLUME 9.9 fl (7.5-11.1); MONO % 11.4 % (3.8-10.2); NEUT % 57.9 % (42.8-82.8); PHOSPHOROUS 2.6 mg/dL (2.5-4.9); PLATELET COUNT 117 K/MM3 (134-434); POTASSIUM 4.2 mmol/L (3.5-5.1); RBC 4.47 M/mm3 (4.00-5.60); RDW 14.9 % (11.9-15.9); SGOT/AST 29 U/L (15-37); SGPT/ALT 28 U/L (12-78); SODIUM 143 mmol/L (136-145)
[2017-09-12 07:30] LABS: ALK PHOS 66 U/L (45-117); BILIRUBIN,TOTAL 1.8 mg/dL (0.2-1.0); TOT PROT 5.1 g/dl (6.4-8.2)
--- NOTE | 2017-09-12 08:24 | MSN ---
Progress Note (short form) - Note Progress Note: SUBJECTIVE: Patient seen and examined at bedside. No acute overnight events. NPO for nuclear stress test this morning. Lopressor held this am. Patient is still vacillating about cardiac cath. system sales consultant recorded tachycardia to 120's bpm (correlated with exertion) and PVCs. No other events recorded. Vital signs stable. Patient has no complaints. He walked with PT yesterday while wearing 2 L O2 via NC without SOB. This morning he is off O2. He denies shortness of breath. He continues to deny lightheadedness, chest pain, palpitations, abdominal pain, or peripheral edema. He is voiding well. He is anxious to go home to start his garden. OBJECTIVE: Vital Signs Period Temp Pulse Resp BP Sys/Blum Pulse Ox Last 24 Hr 97 F-97.5 F 77-113 20-22 120-140/69-96 96-97 GENERAL: Older man with freshly combed hair appearing younger than stated age sitting up in bed in no distress. Awake, alert, and orientated. HEAD: Normal without evidence of trauma EYES: Conjunctiva clear, sclera anicteric, extra-ocular muscles intact MOUTH: Poor dentition/dentures, no lesions or plaques, moist mucous membranes, uvula midline NECK: No jugular venous distention, no lymphadenopathy, no thyromegaly, trachea midline CARDIOVASCULAR: Irregular at rate of 90 bpm, +S1/S2, no murmurs, rubs, or gallops, non-displaced PMI LUNGS: Decreased breath sounds at the bases b/l, breath sounds equal, no wheezes or crackles ABDOMEN: Normoactive bowel sounds, non-tender, non-distended, soft, no hepatosplenomegaly, no pulsatile masses EXTREMITIES: No LE edema, 2+ DP/radial pulses b/l MSK: Osteoarthric changes of hands b/l, no other gross joint deformities NEURO: CN II-XII grossly intact, normal speech, 5/5 muscle strength throughout PSYCH: Cooperative, pleasant mood and affect CBC, BMP 09/12/17 06:30 09/12/17 06:30 Troponin, BNP 09/11/17 16:15 Troponin I 0.05 INR, PTT INR 1.57 (0.82-1.09) H 09/12/17 06:30 Current Medications Generic Name Dose Route Start Last Admin Trade Name Freq PRN Reason Stop Dose Admin Apixaban 5 mg 09/11/17 22:00 09/11/17 22:33 Eliquis - PO 5 mg BID ANMOL Administration Furosemide 20 mg 09/11/17 10:00 09/11/17 10:18 Lasix Injection - IVPUSH 20 mg DAILY ANMOL Administration Lisinopril 5 mg 09/11/17 10:00 09/11/17 10:21 Prinivil PO 5 mg DAILY ANMOL Administration Metoprolol Tartrate 50 mg 09/10/17 22:00 09/11/17 22:33 Lopressor - PO 50 mg BID ANMOL Administration IMAGIN-2 EKG- Atrial fibrillation at ventricular rate of 114 bpm, left anterior fasicular block 5-2 CXR- Bibasilar infiltrates/atelectasis; pulmonary congestion; cardiomegaly 5-2 Echocardiogram: Severely reduced ejection fraction=25-30% with global hypokinesis of left ventricle. Left atrium severely dilated. Right atrium moderately dilated. Severe tricupsid regurgitation. ASSESSMENT/PLAN: 85 yr old man with hx of HTN and hernia repair (2004) presented to ED after 3 weeks of progressive dyspnea with exertion and was found to have new-onset atrial fibrillation and systolic left ventricular dysfunction. #New on-set atrial fibrillation with rapid ventricular rate -Resting ventricular rate is currently controlled with Lopressor 50 mg PO BID ; consider need for increasing lopressor dose as patient is tachycardic with exertion; latent target heart rate at rest of < 110 bpm -[id number] score is 3; patient would benefit from anticoagulation; Heparin ggt was discontinued, now Eliquis 5 mg PO BID -Monitor magnesium level and replete as necessary #Acute CHF exacerbation with cardiomyopathy likely 2/2 to sustained tachycardia -Reduced left ventricular ejection fraction (25-30%) and b/l basilar infiltrates on CXR -Troponins (-) x 2; BNP 10,630 -Lisinopril 5 mg QD -Continue lasix 20 mg IV QD; Strict I/O, patient is negative 1136 mL and negative 9lbs. -Consider need for adding aldactone for mortality benefit -Discontinue O2 -Dr. Eng recommends Lexiscan as concern for CAD contributing to cardiomyopathy; Patient is NPO with AM lopressor held for stress test in AM; follow-up results #Chronic kidney disease- stage 3 -Creatinine 1.2 at admission now 1.1 -Monitor renal function as starting lisinopril 5 mg QD and lasix 20 mg IV QD -Check serum phosphorous, potassium #Mildly elevated total bilirubin (1.7<1.8) -maybe 2/2 to hepatic congestion and reduced cardiac output -LFTs within normal limits, monitor for improvement as medically optimize cardiac function #DVT ppx -Eliquis 5 mg BID #F/E/N -Restart low sodium diet after stress test this AM #Dispo-Discharge home when rate controlled
[2017-09-12] MEDS ORDERED: REGADENOSON 0.4 MG/5 ML PRE-FILLED SYRINGE IVPUSH ONE ×2 (11:52→12:30)
[2017-09-12] MEDS: FUROSEMIDE 40 MG/4 ML INJECTABLE VIAL IVPUSH SCH (13:45)
[2017-09-12] MEDS: LISINOPRIL 5 MG TABLET (FP) PO SCH (13:45)
[2017-09-12] MEDS: APIXABAN 5 MG TABLET PO SCH ×2 (13:45→22:09)
--- NOTE | 2017-09-12 13:54 | PN ---
Teaching Attending Note Name of Resident: Tanmay Villagomez ATTENDING PHYSICIAN STATEMENT I saw and evaluated the patient. I reviewed the resident's note and discussed the case with the resident. I agree with the resident's findings and plan as documented. SUBJECTIVE: Patient went for stress test. Has no new complains. OBJECTIVE: Vital Signs Temperature 97.3 F L 09/12/17 02:38 Pulse Rate 92 H 09/12/17 06:30 Respiratory Rate 20 09/12/17 06:30 Blood Pressure 127/82 09/12/17 06:30 O2 Sat by Pulse Oximetry (%) 97 09/12/17 08:47 GENERAL: Elderly man, NAD, A&Ox3 HEAD: Normal with no signs of trauma. EYES: PERRL, extraocular movements intact, sclera anicteric, conjunctiva clear. ENT: Ears normal, oropharynx clear without exudates, moist mucous membranes. NECK: Trachea midline, full range of motion, supple. LUNGS: CTABL, no wheezes, no accessory muscle use. HEART: Irr Irr, S1, S2 rate is in 90's , 2/6 KEHINDE , no rub or gallop. ABDOMEN: Soft, nontender, nondistended, normoactive bowel sounds, no guarding, no rebound, no hepatosplenomegaly, no masses. EXTREMITIES: warm, well-perfused, no edema. 1+ DP/PT pulses BL. NEUROLOGICAL: Cranial nerves II through XII grossly intact. Normal speech, gait not observed. PSYCH: Normal mood, normal affect. SKIN: Warm, dry, normal turgor, no rashes or lesions noted CBCD WBC 5.0 K/mm3 (4.0-10.0) 09/12/17 06:30 RBC 4.47 M/mm3 (4.00-5.60) 09/12/17 06:30 Hgb 14.4 GM/dL (11.7-16.9) 09/12/17 06:30 Hct 42.4 % (35.4-49) 09/12/17 06:30 MCV 95.0 fl (80-96) 09/12/17 06:30 MCHC 33.8 g/dl (32.0-35.9) 09/12/17 06:30 RDW 14.9 % (11.9-15.9) 09/12/17 06:30 Plt Count 117 K/MM3 (134-434) L 09/12/17 06:30 MPV 9.9 fl (7.5-11.1) 09/12/17 06:30 CMP Sodium 143 mmol/L (136-145) 09/12/17 06:30 Potassium 4.2 mmol/L (3.5-5.1) 09/12/17 06:30 Chloride 106 mmol/L (98-107) 09/12/17 06:30 Carbon Dioxide 27 mmol/L (21-32) 09/12/17 06:30 Anion Gap 10 (8-16) 09/12/17 06:30 BUN 21 mg/dL (7-18) H 09/12/17 06:30 Creatinine 1.1 mg/dL (0.7-1.3) 09/12/17 06:30 Creat Clearance w eGFR > 60 (>60) 09/12/17 06:30 Random Glucose 76 mg/dL (74-106) 09/12/17 06:30 Calcium 8.0 mg/dL (8.5-10.1) L 09/12/17 06:30 Total Bilirubin 1.8 mg/dL (0.2-1.0) H 09/12/17 06:30 AST 29 U/L (15-37) 09/12/17 06:30 ALT 28 U/L (12-78) 09/12/17 06:30 Alkaline Phosphatase 66 U/L (45-117) 09/12/17 06:30 Total Protein 5.1 g/dl (6.4-8.2) L 09/12/17 06:30 Albumin 2.6 g/dl (3.4-5.0) L 09/12/17 06:30 CARDIAC ENZYMES Troponin I 0.05 ng/ml (0.00-0.05) 09/11/17 16:15 Current Medications Generic Name Dose Route Start Last Admin Trade Name Harleyq PRN Reason Stop Dose Admin Apixaban 5 mg 09/11/17 22:00 09/11/17 22:33 Eliquis - PO 5 mg BID ANMOL Administration Furosemide 20 mg 09/11/17 10:00 09/11/17 10:18 Lasix Injection - IVPUSH 20 mg DAILY ANMOL Administration Lisinopril 5 mg 09/11/17 10:00 09/11/17 10:21 Prinivil PO 5 mg DAILY ANMOL Administration Metoprolol Tartrate 50 mg 09/10/17 22:00 09/11/17 22:33 Lopressor - PO 50 mg BID ANMOL Administration Home Medications Medication Instructions Recorded Metoprolol Succinate 100 mg PO DAILY 09/10/17 ASSESSMENT AND PLAN: This is an 86 year old man with a history of HTN who presented to the ED with SOB. #New Onset Atrial fibrillation with RVR rate is controlled now , 92, continue Lopressor , continue Eliquis. Echo shows severely reduced LVEF, severe global hypokinesis of LV, mildly dilated RV, mildly reduced RV systolic function, severely dilated LA, moderately dilated RA, mild MR, moderate to severe TR, mild AR, moderate WA. 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
--- NOTE | 2017-09-12 14:36 | PN ---
Progress Note, Physician Chief Complaint: Dyspnea with effort. Telem AF with HR 70-90 occasionally elevated to 110 History of Present Illness: 86 yo M with HTN noted 3 weeks of dyspnea with exertion. No chest pain, edema, palpitations, orthopnea. Went to PMD yesterday and noted to be in new onset Afib with rapid ventricular response. CXR showed pulmonary congestion. An echocardiogram showed severe diffuse LV systolic dysfunction with EF 25-30% and severe TR. Currently feeling well. Denies symptoms. Stress test 09/12/17 moderate inferior inferolateral and inferoapical fixed defect with mild greta-infarct ischemia. Hypokinesis in inferior and apical matta EF 37% - Current Medication List Current Medications: Active Medications Apixaban (Eliquis -) 5 mg PO BID [facility] Last Admin: 09/11/17 22:33 Dose: 5 mg Furosemide (Lasix Injection -) 20 mg IVPUSH DAILY [facility] Last Admin: 09/11/17 10:18 Dose: 20 mg Lisinopril (Prinivil) 5 mg PO DAILY [facility] Last Admin: 09/11/17 10:21 Dose: 5 mg Metoprolol Tartrate (Lopressor -) 50 mg PO BID [facility] Last Admin: 09/11/17 22:33 Dose: 50 mg - Objective Vital Signs: Vital Signs Temperature 97.3 F L 09/12/17 02:38 Pulse Rate 90 09/12/17 14:13 Respiratory Rate 20 09/12/17 14:13 Blood Pressure 157/68 09/12/17 14:13 O2 Sat by Pulse Oximetry (%) 97 09/12/17 08:47 Constitutional: Yes: Well Nourished HENT: Yes: Atraumatic, Normocephalic Neck: Yes: Supple, Trachea Midline Cardiovascular: Yes: Pulse Irregular, S1, S2. No: JVD Respiratory: Yes: Regular, CTA Bilaterally Gastrointestinal: Yes: Normal Bowel Sounds Edema: No Labs: CBC, BMP 09/12/17 06:30 09/12/17 06:30 INR, PTT INR 1.57 (0.82-1.09) H 09/12/17 06:30 Problem List - Problems (1) Atrial fibrillation with RVR Code(s): I48.91 - UNSPECIFIED ATRIAL FIBRILLATION Assessment/Plan 86 yo M with recent LE and rapid afib. Newly diagnosed cardiomyopathy with severe global LV systolic dysfunction Stress test showing fixed inferior wall defect. Possibly mixed ischemic and non-ischemic Cardiomyopathy with fixed inferior wall defect suggesting an old [place]. Mild greta-infarct ischemia seen. * Continue medical management. Follow up echocardiogram as out patient after a few months of rate control. * Can consider DCCV in the future if symptomatic * Raise Metoprolol 75mg BID * Continue Lisinopril and low dose lasix * Continue ELiquis * Consider DC home when adequately rate controlled.
--- NOTE | 2017-09-12 17:24 | DS ---
Physical Exam: SUBJECTIVE: Patient seen and examined - no major overnight events; VSS, afebrile; going for [employer] today; Pt with no complaints; Denies f/c/n/v/d, CABRERA, sob, cp, cough, ab pain, back pain, le edema and FNDs OBJECTIVE: Vital Signs Intake & Output 09/09/17 09/10/17 09/11/17 09/12/17 23:59 23:59 23:59 23:59 Intake Total 464 Output Total 1600 250 Balance -1136 -250 Weight 77.111 kg 77.7 kg 73.567 kg Period Temp Pulse Resp BP Sys/Blum Pulse Ox Last 24 Hr 97.2 F-97.3 F 77-94 20-20 120-157/68-96 97-97 PHYSICAL EXAM GENERAL: Elderly man, NAD, A&Ox3 HEAD: Normal with no signs of trauma. EYES: PERRL, extraocular movements intact, sclera anicteric, conjunctiva clear. No ptosis. ENT: Ears normal, nares patent, oropharynx clear without exudates, moist mucous membranes. NECK: Trachea midline, full range of motion, supple. LUNGS: CTABL, no wheezes, no accessory muscle use. HEART: Irr Irr, S1, S2 without murmur, rub or gallop. ABDOMEN: Soft, nontender, nondistended, normoactive bowel sounds, no guarding, no rebound, no hepatosplenomegaly, no masses. EXTREMITIES: warm, well-perfused, no edema. 1+ DP/PT pulses BL. NEUROLOGICAL: Cranial nerves II through XII grossly intact. Normal speech, gait not observed. PSYCH: Normal mood, normal affect. SKIN: Warm, dry, normal turgor, no rashes or lesions noted LABS Laboratory Results - last 24 hr CBC, BMP 09/12/17 06:30 09/12/17 06:30 09/11/17 09/11/17 09/11/17 06:45 16:15 19:30 WBC RBC Hgb Hct MCV MCH MCHC RDW Plt Count MPV Neutrophils % Lymphocytes % Monocytes % Eosinophils % Basophils % PT with INR INR PTT (Actin FS) 76.4 H Sodium Potassium Chloride Carbon Dioxide Anion Gap BUN Creatinine Creat Clearance w eGFR Random Glucose Calcium Phosphorus Magnesium Total Bilirubin AST ALT Alkaline Phosphatase Troponin I 0.05 Total Protein Albumin Total T3 63.00 L 09/12/17 09/12/17 09/12/17 06:30 06:30 06:30 WBC 5.0 RBC 4.47 Hgb 14.4 Hct 42.4 MCV 95.0 MCH 32.1 MCHC 33.8 RDW 14.9 Plt Count 117 L MPV 9.9 Neutrophils % 57.9 Lymphocytes % 28.2 Monocytes % 11.4 H Eosinophils % 1.9 Basophils % 0.6 PT with INR 17.70 H INR 1.57 H PTT (Actin FS) 43.9 H D Sodium Potassium Chloride Carbon Dioxide Anion Gap BUN Creatinine Creat Clearance w eGFR Random Glucose Calcium Phosphorus Magnesium Total Bilirubin AST ALT Alkaline Phosphatase Troponin I Total Protein Albumin Total T3 09/12/17 06:30 WBC RBC Hgb Hct MCV MCH MCHC RDW Plt Count MPV Neutrophils % Lymphocytes % Monocytes % Eosinophils % Basophils % PT with INR INR PTT (Actin FS) Sodium 143 Potassium 4.2 Chloride 106 Carbon Dioxide 27 Anion Gap 10 BUN 21 H Creatinine 1.1 Creat Clearance w eGFR > 60 Random Glucose 76 Calcium 8.0 L Phosphorus 2.6 Magnesium 1.9 Total Bilirubin 1.8 H AST 29 ALT 28 Alkaline Phosphatase 66 Troponin I Total Protein 5.1 L Albumin 2.6 L Total T3 No micro CXR 5/2 - BL basilar opacities and congestive changes. cardiomegaly ECHO 5/3 - Severe global hypokinesis of left ventricle, RV mildly dilated/ reduced, LA severely dilated, RA moderately dilated, mild MR, moderate TR, mild AR, moderate ND EKG 5/3 - Rate of 88, afib with pvcs, qtc 513, LAFB, No ST-TW changes Consults: Cardiology HOSPITAL COURSE: prehospital: Patient is an 86 yo M with a PMHx of HTN, presented to the ED because of worsening dyspnea on exertion over the past 3 weeks. He says he was able to walk long distances, but now he can't walk 15 yards without stopping to catch his breath. He saw is PCP today who found him to be in A-fib with RVR, and was told to go to the ED. He does not follow a spring internship. He also noticed he has been coughing (dry) more frequently over the past few weeks. Patient denies orthopnea, edema, dizziness, chest pain, sob, palpitations, nausea, vomiting, headaches, dysuria, diarrhea, weight loss. ER course was notable for: (1) EKG: A-fib with RVR @ 114. QTc 504 (2) Lasix 40mg IV (3) Cardizem 30mg hospital: After receiving cardizem 30mg in ED, pt rate controlled to HR 80-90s. All other VSS. Labs notable for BNP 10.6K. Trops neg x2. Imaging, EKG as noted above. Cardiology consulted. Pt started on heparin gtt, later switched to Eliquis BID. Switched to lopressor 50mg BID. Pt continued on lasix 20mg IV daily, with resolution of dyspnea next day. Echo as noted above. Pt with no symptoms or complaints on f/u day of admission. Pt received lexiscan notable for fixed inferior ischemic defect consistent with prior infarct, severe hypokinesis of inferior and lateral wall. Date of Admission:09/10/17 Date of Discharge: 09/12/17 Pt is medically stable and cleared for discharge home with outpt f/u with Dr. Eng for further work-up and management of cardiac condition. Minutes to complete discharge: 35 Discharge Summary Reason For Visit: PLEURAL EFFUSION/ATRIAL FIB W/RAPID VENTRICULAR RE Current Active Problems Atrial fibrillation with RVR (Acute) Pleural effusion (Acute) Condition: Fair - Instructions Diet, Activity, Other Instructions: During your stay at [facility], you were evaluated for worsening shortness of breath after recently being diagnosed with atrial fibrillation. You were evaluated by our spring internship, Dr. Eng, and stated on diuretics to help with your breathing and eliquis twice a day for anticoagulation. You received a nuclear stress test to evaluate your heart, which demonstrated a prior ischemic area at the base of your heart which is likely chronic. You are being discharged home with outpatient follow-up with Dr. Eng. Medications: The following medications were added to your home regimen. Please take them as directed below. Lopressor 75mg, take one and a half pills by mouth, twice a day. If you become lighthead or your BP is noted to be low, please reduce your dose to one pill ( 50mg), twice a day. Lasix 20mg, take one pill by mouth once a day Eliquis 5mg, take one pill by mouth twice a day Please continue to take all other home medications as previously directed. Follow-ups: Please follow-up with your primary care physician in one week for further management of your medications. Please call their office to schedule an appointment. Please call within one week to schedule an appointment. Please follow-up with our spring internship, Dr Eng, within 1 week at his office. His contact number and address have been provided in this packet. Please call his office to schedule an appointment. You may require additional testing to evaluate the vessels in your heart. Please discuss the further management and work-up of your cardiac condition with Dr. Eng at your next visit with him. Diet/exercise: Please abide by a low sodium, low fat diet. Please return to the hospital if you experience any of the following symptoms: - Increased difficulty breathing or decreased exercise tolerance - Worsening dizziness/lightheadness - Worsening palpitations or persistently fast or slow heart beat - Increase swelling in your legs, abdominal pain or increased difficulty breathing - Any new or concerning symptoms Referrals: Diana Mena MD [Primary Care Provider] - 1 Week Jose De Jesus Eng MD [Staff Physician] - 1 Week Disposition: HOME - Home Medications Comprehensive Discharge Medication List: Ambulatory Orders Apixaban [Eliquis -] 5 mg PO BID #60 tablet 09/12/17 Furosemide [Lasix] 20 mg PO DAILY #30 tablet 09/12/17 Lisinopril [Prinivil] 5 mg PO DAILY #30 tablet 09/12/17 Metoprolol Tartrate [Lopressor -] 75 mg PO BID #90 tablet 09/12/17 This patient is new to me today: No Emergency Visit: Yes ED Registration Date: 09/10/17 Care time: The patient presented to the Emergency Department on the above date and was hospitalized for further evaluation of their emergent condition. Critical Care patient: No - Discharge Referral Referred to [facility] Med P.C.: No
[2017-09-13 07:43] LABS: CHLORIDE 106 mmol/L (98-107); POTASSIUM 4.6 mmol/L (3.5-5.1); SODIUM 142 mmol/L (136-145)
[2017-09-13 07:51] LABS: ALBUMIN 2.9 g/dl (3.4-5.0); ALK PHOS 82 U/L (45-117); ANION GAP 7 (8-16); BILIRUBIN,TOTAL 1.7 mg/dL (0.2-1.0); BLOOD UREA NITROGEN 16 mg/dL (7-18); CALCIUM 8.2 mg/dL (8.5-10.1); CO2 29 mmol/L (21-32); GLUCOSE,RANDOM 93 mg/dL (74-106); INR 1.73 (0.82-1.09); PHOSPHOROUS 3.2 mg/dL (2.5-4.9); PROTHROMBIN TIME (PATIENT) 19.5 SEC (9.7-13.0); SGOT/AST 29 U/L (15-37); SGPT/ALT 29 U/L (12-78); TOT PROT 5.5 g/dl (6.4-8.2)
[2017-09-13 08:03] LABS: BASO % 0.4 % (0-2.0); EOS % 1.5 % (0-4.5); HEMATOCRIT 43.9 % (35.4-49); LYMPH % 22.7 % (8-40); MCH 32.1 pg (25.7-33.7); MCHC 34.1 g/dl (32.0-35.9); MEAN PLT VOLUME 9.8 fl (7.5-11.1); NEUT % 64.4 % (42.8-82.8); PLATELET COUNT 136 K/MM3 (134-434); RBC 4.67 M/mm3 (4.00-5.60); RDW 15.3 % (11.9-15.9); WHITE BLOOD COUNT 6.2 K/mm3 (4.0-10.0)
--- NOTE | 2017-09-13 08:58 | DS ---
Physical Exam: SUBJECTIVE: Patient seen and examined Patient is feeling well, wants to go home OBJECTIVE: Vital Signs Temperature 98.2 F 09/13/17 09:25 Pulse Rate 92 H 09/13/17 09:25 Respiratory Rate 18 09/13/17 09:25 Blood Pressure 127/67 09/13/17 09:25 O2 Sat by Pulse Oximetry (%) 95 09/13/17 10:00 PHYSICAL EXAM GENERAL: The patient is awake, alert, and fully oriented, in no acute distress. HEAD: Normal with no signs of trauma. EYES: PERRL, extraocular movements intact, sclera anicteric, conjunctiva clear. ENT: Ears normal, oropharynx clear without exudates, moist mucous membranes. NECK: Trachea midline, full range of motion, supple. LUNGS: Breath sounds equal, clear to auscultation bilaterally, no wheezes, no crackles, no accessory muscle use. HEART: irregularly-irregular with rate of 90's , S1, [id number], KEHINDE 2/6 , no rub or gallop. ABDOMEN: Soft, nontender, nondistended, normoactive bowel sounds, no guarding, no rebound, no hepatosplenomegaly, no masses. EXTREMITIES: 2+ pulses, warm, well-perfused, no edema. NEUROLOGICAL: Cranial nerves II through XII grossly intact. Normal speech, gait not observed. PSYCH: Normal mood, normal affect. SKIN: Warm, dry, normal turgor, no rashes or lesions noted. LABS CBCD WBC 6.2 K/mm3 (4.0-10.0) 09/13/17 05:00 RBC 4.67 M/mm3 (4.00-5.60) 09/13/17 05:00 Hgb 15.0 GM/dL (11.7-16.9) 09/13/17 05:00 Hct 43.9 % (35.4-49) 09/13/17 05:00 MCV 94.0 fl (80-96) 09/13/17 05:00 MCHC 34.1 g/dl (32.0-35.9) 09/13/17 05:00 RDW 15.3 % (11.9-15.9) 09/13/17 05:00 Plt Count 136 K/MM3 (134-434) 09/13/17 05:00 MPV 9.8 fl (7.5-11.1) 09/13/17 05:00 CMP Sodium 142 mmol/L (136-145) 09/13/17 05:00 Potassium 4.6 mmol/L (3.5-5.1) 09/13/17 05:00 Chloride 106 mmol/L (98-107) 09/13/17 05:00 Carbon Dioxide 29 mmol/L (21-32) 09/13/17 05:00 Anion Gap 7 (8-16) L 09/13/17 05:00 BUN 16 mg/dL (7-18) D 09/13/17 05:00 Creatinine 1.0 mg/dL (0.7-1.3) 09/13/17 05:00 Creat Clearance w eGFR > 60 (>60) 09/13/17 05:00 Random Glucose 93 mg/dL (74-106) D 09/13/17 05:00 Calcium 8.2 mg/dL (8.5-10.1) L 09/13/17 05:00 Total Bilirubin 1.7 mg/dL (0.2-1.0) H 09/13/17 05:00 AST 29 U/L (15-37) 09/13/17 05:00 ALT 29 U/L (12-78) 09/13/17 05:00 Alkaline Phosphatase 82 U/L (45-117) D 09/13/17 05:00 Total Protein 5.5 g/dl (6.4-8.2) L 09/13/17 05:00 Albumin 2.9 g/dl (3.4-5.0) L 09/13/17 05:00 CARDIAC ENZYMES Troponin I 0.05 ng/ml (0.00-0.05) 09/11/17 16:15 Current Medications Generic Name Dose Route Start Last Admin Trade Name Freq PRN Reason Stop Dose Admin Apixaban 5 mg 09/11/17 22:00 09/12/17 22:09 Eliquis - PO 5 mg BID ANMOL Administration Furosemide 20 mg 09/11/17 10:00 09/12/17 13:45 Lasix Injection - IVPUSH 20 mg DAILY ANMOL Administration Lisinopril 5 mg 09/11/17 10:00 09/12/17 13:45 Prinivil PO 5 mg DAILY ANMOL Administration Metoprolol Succinate 75 mg 09/12/17 22:00 09/12/17 22:09 Toprol Xl - PO 75 mg BID ANMOL Administration Home Medications Medication Instructions Recorded Apixaban [Eliquis -] 5 mg PO BID #60 tablet 09/12/17 Furosemide [Lasix] 20 mg PO DAILY #30 tablet 09/12/17 Lisinopril [Prinivil] 5 mg PO DAILY #30 tablet 09/12/17 Metoprolol Tartrate [Lopressor -] 75 mg PO BID #90 tablet 09/12/17 HOSPITAL COURSE: Date of Admission:09/10/17 Date of Discharge: 09/13/17 This is an 86 year old man with a history of HTN who presented to the ED with SOB and new onset Afib. #New Onset Atrial fibrillation with RVR rate improved today 92, continue Lopressor, on Eliquis continue Echo shows severely reduced LVEF, severe global hypokinesis of LV, mildly dilated RV, mildly reduced RV systolic function, severely dilated LA, moderately dilated RA, mild MR, moderate to severe TR, mild AR, moderate [place]. Patient had a stress test showing fixed inferior wall defect as per vba developer suggesting an old [place], Mild greta-infarct ischemia seen. As per cardio.to continue medical management for now, follow up echocardiogram as out patient within 2 months period. Patient needs to follow up with vba developer office within a week period for further medical care. On Lopressor increased the dose to 75mg XL daily. As per cardio. if patient becomes symtomatic possible needing DCCV in the future #Acute on chronic systolic heart failure with on Lasix , will switch to po lasix 20mg daily as per cardio recommendation , sodium and fluid restriction, On isinopril continue. # Newly diagnosed cardiomyopathy with severe global LV systolic dysfunction., possible Ischemic vs non-Ischemia, with fixed inferior wall defect, old [place]. # Probable stage 3 CKD # HTN contolled on Lopressor and Lisinopril discussed with vba developer discharge time 40 minutes. Minutes to complete discharge: 40 Discharge Summary Reason For Visit: PLEURAL EFFUSION/ATRIAL FIB W/RAPID VENTRICULAR RE Current Active Problems Atrial fibrillation with RVR (Acute) Pleural effusion (Acute) Condition: Fair - Instructions Diet, Activity, Other Instructions: During your stay at [facility], you were evaluated for worsening shortness of breath after recently being diagnosed with atrial fibrillation. You were evaluated by our vba developer, Dr. Eng, and stated on diuretics to help with your breathing and eliquis twice a day for anticoagulation. You received a nuclear stress test to evaluate your heart, which demonstrated a prior ischemic area at the base of your heart which is likely chronic. You are being discharged home with outpatient follow-up with Dr. Eng. Medications: The following medications were added to your home regimen. Please take them as directed below. Lopressor 75mg, take one and a half pills by mouth, twice a day. If you become lighthead or your BP is noted to be low, please reduce your dose to one pill ( 50mg), twice a day. Lasix 20mg, take one pill by mouth once a day Eliquis 5mg, take one pill by mouth twice a day Please continue to take all other home medications as previously directed. Follow-ups: Please follow-up with your primary care physician in one week for further management of your medications. Please call their office to schedule an appointment. Please call within one week to schedule an appointment. Please follow-up with our vba developer, Dr Eng, within 1 week at his office. His contact number and address have been provided in this packet. Please call his office to schedule an appointment. You may require additional testing to evaluate the vessels in your heart. Please discuss the further management and work-up of your cardiac condition with Dr. Eng at your next visit with him. Diet/exercise: Please abide by a low sodium, low fat diet. Please return to the hospital if you experience any of the following symptoms: - Increased difficulty breathing or decreased exercise tolerance - Worsening dizziness/lightheadness - Worsening palpitations or persistently fast or slow heart beat - Increase swelling in your legs, abdominal pain or increased difficulty breathing - Any new or concerning symptoms Referrals: Diana Mena MD [Primary Care Provider] - 1 Week Jose De Jesus Eng MD [Staff Physician] - 1 Week Disposition: HOME - Home Medications Comprehensive Discharge Medication List: Ambulatory Orders Apixaban [Eliquis -] 5 mg PO BID #60 tablet 09/12/17 Furosemide [Lasix] 20 mg PO DAILY #30 tablet 09/12/17 Lisinopril [Prinivil] 5 mg PO DAILY #30 tablet 09/12/17 Metoprolol Tartrate [Lopressor -] 75 mg PO BID #90 tablet 09/12/17 This patient is new to me today: No Emergency Visit: Yes ED Registration Date: 09/10/17 Care time: The patient presented to the Emergency Department on the above date and was hospitalized for further evaluation of their emergent condition. Critical Care patient: No - Discharge Referral Referred to [facility] Med P.C.: No
[2017-09-13] MEDS: FUROSEMIDE 40 MG/4 ML INJECTABLE VIAL IVPUSH SCH (09:18)
[2017-09-13] MEDS: LISINOPRIL 5 MG TABLET (FP) PO SCH (09:19)
[2017-09-13] MEDS: APIXABAN 5 MG TABLET PO SCH (09:20)
[2017-09-13 09:26] VITALS: BP 127/67; PULSE 92; TEMP 98.2
== END 2017-09-13 14:53 | disposition home or self-care (01) | DRG 291 ==
LOC: JER 16:39 → JERBED 19:46 → J4W 09-11 00:09
PROVIDERS: ADMIT Internal Medicine; ATTEND Internal Medicine
DX: I13.0 Hypertensive heart and chronic kidney disease with heart failure and stage 1 through stage 4 chronic kidney disease, or unspecified chronic kidney disease (principal); I50.23 Acute on chronic systolic (congestive) heart failure; N17.9 Acute kidney failure, unspecified; I48.91 Unspecified atrial fibrillation; I44.69 Other fascicular block; I25.10 Atherosclerotic heart disease of native coronary artery without angina pectoris; I25.5 Ischemic cardiomyopathy; R00.0 Tachycardia, unspecified; N18.3 Chronic kidney disease, stage 3 (moderate); I25.2 Old myocardial infarction
CPT/HCPCS: 36415; 71046-TC-FY; 78452-TC; 80053; 82436; 83735; 83880; 84100; 84133; 84300; 84439; 84443; 84480; 84484; 84540; 85025; 85027; 85610; 85730; 93005; 93010; 93017; 93306-TC; 97116-GP; 97161-GP; 99284-25; A9502; J1644; J2785

== ENCOUNTER 2018-12-22 07:40 | Day surgery (SDC) | payer OTHER | END 2018-12-22 11:17 | disposition home or self-care (01) | LOC: FASU 07:40 ==

== ENCOUNTER 2019-02-02 07:52 | Day surgery (SDC) | payer OTHER ==
[2019-01-26 12:10] VITALS: BMI 22.9
[2019-02-02] MEDS ORDERED: CYCLOPENTOLATE HCL 1% OPHTH SOLN 2 ML BOTTLE ONE (07:55)
[2019-02-02] MEDS ORDERED: KETOROLAC TROMETHAMINE 0.5% EYE DROP 1 DROP DROPS ONE (07:56)
[2019-02-02] MEDS ORDERED: OFLOXACIN 0.3% OPHTHALMIC SOLUTION 5 ML BOTTLE ONE (07:56)
[2019-02-02] MEDS ORDERED: PHENYLEPHRINE 2.5% OPHTH SOLN 15 ML BOTTLE ONE (07:56)
[2019-02-02] MEDS ORDERED: TROPICAMIDE 1% OPHTH SOLN 15 ML BOTTLE ONE (07:56)
[2019-02-02] MEDS: CYCLOPENTOLATE HCL 1% OPHTH SOLN 2 ML BOTTLE OD SCH ×5 (08:20→08:40)
[2019-02-02] MEDS: KETOROLAC TROMETHAMINE 0.5% EYE DROP 1 DROP DROPS OD SCH ×5 (08:20→08:40)
[2019-02-02] MEDS: PHENYLEPHRINE 2.5% OPHTH SOLN 15 ML BOTTLE OD SCH ×5 (08:20→08:40)
[2019-02-02] MEDS: OFLOXACIN 0.3% OPHTHALMIC SOLUTION 5 ML BOTTLE OD SCH ×5 (08:20→08:40)
[2019-02-02] MEDS: TROPICAMIDE 1% OPHTH SOLN 15 ML BOTTLE OD SCH ×5 (08:20→08:40)
[2019-02-02 08:24] VITALS: TEMP 97.6
[2019-02-02] MEDS ORDERED: BACITRACIN/POLYMYXIN OPH OINT 3.5 GM TUBE ONE (08:54)
[2019-02-02] MEDS ORDERED: EPI-SHUGARCAINE (EPINEPHRINE 0.025% & LIDOCAINE-PF 0.75%) 4ML ONE (08:54)
[2019-02-02] MEDS ORDERED: BETAXOLOL HCL 0.25% OPHTHALMIC 10 ML DROPSBTL ONE (08:54)
[2019-02-02] MEDS ORDERED: POVIDONE-IODINE 5% OPHTHALMIC PREP 30 ML SOLUTION ONE (08:54)
[2019-02-02] MEDS ORDERED: TETRACAINE 0.5% OPHTH SOLN 2 ML BOTTLE ONE (08:54)
[2019-02-02] MEDS ORDERED: NEO/POLYMYX B SULF/DEXAMETH OPHTHALMIC 5ML BOTTLE ONE (08:55)
[2019-02-02] MEDS ORDERED: ACETYLCHOLINE 1:100 INTRA-OCUL 20 MG/2 ML KIT ONE (08:55)
[2019-02-02] MEDS ORDERED: MIDAZOLAM HCL 2 MG/2 ML SINGLE DOSE VIAL ONE (09:51)
[2019-02-02] MEDS ORDERED: DEXAMETHASONE SOD PHOSPHATE 4 MG/1 ML VIAL ONE (09:52)
[2019-02-02] MEDS ORDERED: ONDANSETRON 4 MG/2 ML VIAL ONE (09:52)
[2019-02-02] MEDS ORDERED: TRYPAN BLUE 0.5 ML DISP.SYRIN ONE (10:00)
[2019-02-02 12:02] VITALS: BP 115/58; PULSE 49
--- NOTE | 2019-02-02 12:29 | OP ---
DATE OF OPERATION: 02/02/2019 PREOPERATIVE DIAGNOSIS: Cataract, right eye. POSTOPERATIVE DIAGNOSIS: Cataract, right eye. PROCEDURE: Cataract extraction via phacoemulsification with insertion of posterior chamber lens implant, right eye. SURGEON: Bonilla Smith MD [facility] SPECIALIST: Maribel Espinosa MD ANESTHESIA: Topical with sedation. ESTIMATED BLOOD LOSS: Less than 1 mL. SPECIMENS: None. COMPLICATIONS: None. DESCRIPTION OF PROCEDURE: The patient was identified in the holding area. After all risks, benefits, and alternatives were explained to the patient, informed consent was obtained. The right eye was marked with a marking pen. The patient then entered the operating room on an eye stretcher. After a formal time-out was performed, topical tetracaine eye drops were instilled onto the right eye. The right eye was then prepped and draped in the usual sterile fashion. An eyelid speculum was placed beneath the eyelid of the right eye. A superotemporal paracentesis incision was created using a 15-degree. Topical preservative-free epinephrine and preservative-free lidocaine was then injected into the anterior chamber. Viscoelastic was then injected into the anterior chamber. A 2.4-mm keratome blade was then used to make an infratemporal incision. A 360-degree continuous curvilinear capsulorrhexis was then created using bent cystotome and Utrata forceps. Hydrodissection was performed using balanced saline solution on a cannula. Phacoemulsification was introduced to disassemble and remove the nucleus in its entirety. Irrigation/aspiration was then used to remove any remaining cortical material from the eye. The capsular bag was reformed using viscoelastic. An Robb Model [id number] with a power of 16.5 diopter serial number [id number] was inspected and found to be defect free and injected into the capsular bag. Irrigation/aspiration was then used to remove any remaining viscoelastic from the eye. The anterior chamber was reformed using balanced saline solution. Intracameral injection of Miochol was then administered, and the pupil came down and was round. All wounds were hydrated with balanced saline solution and noted to be watertight. There was red reflex present. The anterior chamber was deep. The lens was perfectly centered in the capsular bag, and the eye had adequate pressure. Topical antibiotic eyedrops and ointment were then administered to the right eye. The eyelid speculum was removed from the right eye. The right eye was shielded. The patient tolerated the procedure well. Left the operating room in stable condition to follow up in the eye clinic tomorrow morning at 10 o'clock. BONILLA SMITH M.D. [facility]/[id number]
== END 2019-02-02 11:35 | disposition home or self-care (01) ==
LOC: FASU 07:52
PROVIDERS: ATTEND Ophthalmology
PROC: 08RJ3JZ Replacement of Right Lens with Synthetic Substitute, Percutaneous Approach (ICD-10-PCS; principal; 2019-02-02 10:08)
DX: H26.9 Unspecified cataract (principal)